=== PATIENT | female | born 1960 | race African-American/Black ===

== ENCOUNTER 2024-01-13 18:58 | Emergency (ER) | payer OTHER ==
[~2024-01-13] VITALS: Ht 167.6 cm; Wt 75.0 kg
[2024-01-13 19:01] VITALS: O2SAT 99
[2024-01-13] MEDS ORDERED: D-ME473S50 PO (20:13)
[2024-01-13] MEDS ORDERED: CETI10TA6 MT (20:13)
[2024-01-13] MEDS ORDERED: FLUT9.9S BOTHNSTRLS (20:14)
[2024-01-13 20:20] VITALS: BP 133/72; PULSE 98; RESP 18; TEMP 36.78072; O2SAT 99
== END 2024-01-13 20:26 | disposition home or self-care (01) ==
LOC: ER 18:58
DX: R05.9 Cough, unspecified (principal); R09.81 Nasal congestion; E11.9 Type 2 diabetes mellitus without complications; Z90.710 Acquired absence of both cervix and uterus; Z90.49 Acquired absence of other specified parts of digestive tract
CPT/HCPCS: 71045; 99283